=== PATIENT | female | born 1940 | race Two or more races ===

== ENCOUNTER 2022-02-27 10:27 | Inpatient (IN) | payer MEDICAID, MEDICARE, OTHER ==
[~2022-02-27] VITALS: Ht 154.9 cm; Wt 68.0 kg
[2022-02-27] MEDS ORDERED: ONDANSETRON HCL 4MG/2ML INJ IV ONE (11:45)
[2022-02-27 12:01] LABS: CHLORIDE 109 mEq/L (98-107)
[2022-02-27 12:08] LABS: BASOPHILS % 0.5 % (0.0-2.0); EOSINOPHILS % 0.4 % (0.0-5.0); HEMATOCRIT. 34.8 % (36.0-48.0); HEMOGLOBIN. 11.8 g/dL (12.0-16.0); LYMPHOCYTES % 50.3 % (20.0-50.0); MEAN CORPUSCULAR HEMOGLOBIN 31.8 pg (28.0-32.0); MEAN CORPUSCULAR VOLUME 93.7 fL (81.0-99.0); MEAN PLATELET VOLUME 9.9 fl (7.4-10.4); MONOCYTES % 8.1 % (2.0-8.0); NEUTROPHILS % 40.7 % (40.0-76.0); PLATELET 201 x1000/uL (130-400); RED BLOOD CELL COUNT 3.71 mill/uL (4.2-5.4); RED CELL DISTRIBUTION WIDTH 14.5 % (11.6-14.6)
[2022-02-27] MEDS ORDERED: CEFEPIME HCL 1000MG/VIAL INJ IM ONE (12:30)
[2022-02-27] MEDS ORDERED: VANCOMYCIN 1G PREMIX 200 ML IV SCH (12:30)
[2022-02-27] MEDS ORDERED: SODIUM CHLORIDE 0.9% 1000ML BAG (SEPSIS BOLUS) IV ONE (12:30)
[2022-02-27 14:20] LABS: CLARITY URINE CLEAR (CLEAR); COLOR URINE YELLOW (YELLOW); KETONES URINE 1+ (NEGATIVE); LEUKOCYTE ESTERASE URINE NEGATIVE (NEGATIVE); NITRITE URINE NEGATIVE (NEGATIVE); OCCULT BLOOD URINE NEGATIVE (NEGATIVE); PROTEIN URINE NEGATIVE (NEGATIVE); UROBILINOGEN URINE 0.2 E.U./dL (0.2-1.0)
[2022-02-27] MEDS ORDERED: CEFEPIME 1,000 MG in DEXTROSE 5% WATER 50 ML IV SCH (15:30)
[2022-02-27 17:15] VITALS: BP 123/51
[2022-02-27] MEDS ORDERED: METO25TA6 PO (18:06)
[2022-02-27] MEDS ORDERED: APIX5TAB4 PO (18:06)
[2022-02-27] MEDS ORDERED: GLIP5TAB12 PO (18:06)
[2022-02-27] MEDS ORDERED: METF-414 PO (18:06)
[2022-02-27] MEDS ORDERED: LEVO25TA2 PO (18:09)
[2022-02-27] MEDS ORDERED: DOCUSATE SODIUM 100MG CAPSULE PO PRN ×2 (19:00)
[2022-02-27] MEDS ORDERED: MAGNESIUM/ALUMINUM HYDROXIDE/SIMETHICONE 30ML UDC PO PRN (19:00)
[2022-02-27] MEDS ORDERED: PIPERACILLIN/TAZ 3.375G PREMIX 50 ML IV SCH ×2 (19:00)
[2022-02-27] MEDS ORDERED: APIXABAN 5 MG TABLET PO SCH (19:00)
[2022-02-27] MEDS ORDERED: ACETAMINOPHEN 325MG TABLET PO PRN ×2 (19:00)
[2022-02-27] MEDS ORDERED: ONDANSETRON HCL 4MG/2ML INJ IV PRN (19:00)
[2022-02-27] MEDS ORDERED: LEVO125T8 PO (19:14)
[2022-02-27] MEDS ORDERED: METO-396 PO (19:14)
[2022-02-27] MEDS ORDERED: ATOR20TA PO (19:15)
[2022-02-27] MEDS ORDERED: VALS1TAB72 PO (19:16)
[2022-02-27] MEDS ORDERED: SERT25TA74 PO (19:17)
[2022-02-27 20:00] VITALS: BP 128/59
[2022-02-27] MEDS ORDERED: DEXTROSE 50% WATER 50ML SYRINGE IV PRN (20:30)
[2022-02-27] MEDS ORDERED: MAGNESIUM CITRATE 300ML SOLUTION PO NR (21:00)
[2022-02-27] MEDS: BLOOD SUGAR DIAGNOSTIC STRIP TEST SCH (21:00)
[2022-02-27] MEDS: METOPROLOL TARTRATE 25MG TABLET PO SCH (22:54)
[2022-02-27] MEDS: PIPERACILLIN/TAZOBACTAM 3.375G in DEXT 5% WATER 50ML IV SCH (22:55)
[2022-02-27] MEDS: INSULIN LISPRO 100 UNITS/ML SUBCUT SCH (23:21)
[2022-02-28] VITALS: BP 122/54
[2022-02-28 04:00] VITALS: BP 124/60
[2022-02-28 05:59] LABS: BASOPHILS % 0.4 % (0.0-2.0); EOSINOPHILS % 0.5 % (0.0-5.0); HEMATOCRIT. 32.1 % (36.0-48.0); HEMOGLOBIN. 10.9 g/dL (12.0-16.0); LYMPHOCYTES % 30.9 % (20.0-50.0); MEAN CORPUSCULAR HEMOGLOBIN 31.6 pg (28.0-32.0); MEAN CORPUSCULAR VOLUME 93.1 fL (81.0-99.0); MEAN PLATELET VOLUME 9.3 fl (7.4-10.4); MONOCYTES % 7.9 % (2.0-8.0); NEUTROPHILS % 60.3 % (40.0-76.0); PLATELET 174 x1000/uL (130-400); RED BLOOD CELL COUNT 3.45 mill/uL (4.2-5.4); RED CELL DISTRIBUTION WIDTH 14.7 % (11.6-14.6)
[2022-02-28 06:02] LABS: CHLORIDE 112 mEq/L (98-107)
[2022-02-28] MEDS: BLOOD SUGAR DIAGNOSTIC STRIP TEST SCH ×3 (06:32→16:49)
[2022-02-28] MEDS: PIPERACILLIN/TAZOBACTAM 3.375G in DEXT 5% WATER 50ML IV SCH ×2 (06:32→11:52)
[2022-02-28] MEDS ORDERED: LEVOTHYROXINE SODIUM 125MCG TABLET PO SCH (07:20)
[2022-02-28] MEDS: INSULIN LISPRO 100 UNITS/ML SUBCUT SCH ×3 (07:50→16:52)
[2022-02-28] MEDS: APIXABAN 5 MG TABLET PO SCH ×2 (08:15→16:48)
[2022-02-28 08:16] VITALS: BP_SYST 108; BP_SYST 116; BP_SYST 130; BP_DIAS 40; BP_DIAS 44; BP_DIAS 74
[2022-02-28] MEDS: METOPROLOL TARTRATE 25MG TABLET PO SCH (08:16)
[2022-02-28] MEDS ORDERED: LEVOTHYROXINE SODIUM 25MCG TABLET PO SCH (09:00)
[2022-02-28 09:20] LABS: VITAMIN B12 SERUM 291 pg/mL (211-911)
[2022-02-28 12:30] VITALS: BP 120/46
[2022-02-28] MEDS ORDERED: SORBITOL 70% SOLN 30ML PO NR (14:15)
[2022-02-28] MEDS ORDERED: NA PHOS,M-B/NA PHOS,DI-BA ENEMA 118ML PR NR (14:15)
[2022-02-28 16:04] VITALS: BP 126/58
[2022-02-28 16:29] VITALS: BP 126/58
== END 2022-02-28 18:48 | disposition home health service (06) | DRG 389 ==
LOC: ER 10:55 → 6WST 14:39 → ENRESERV 16:35
PROVIDERS: ADMIT Internal Medicine Pulmonary Disease; ATTEND Internal Medicine Pulmonary Disease
DX: K56.41 Fecal impaction (principal); E44.1 Mild protein-calorie malnutrition; E11.9 Type 2 diabetes mellitus without complications; F41.9 Anxiety disorder, unspecified; K44.9 Diaphragmatic hernia without obstruction or gangrene; E87.8 Other disorders of electrolyte and fluid balance, not elsewhere classified; D64.9 Anemia, unspecified; Z68.28 Body mass index [BMI] 28.0-28.9, adult; Z90.49 Acquired absence of other specified parts of digestive tract; Z95.2 Presence of prosthetic heart valve
CPT/HCPCS: 36415; 71045; 74176; 76700; 80053; 81003; 82607; 82962; 83036; 83605; 83880; 84443; 84484; 85025; 93005; 99285; J0692; J1815; J2405; J2543; J3370; J7030; J7060

== ENCOUNTER 2025-02-04 21:15 | Emergency (ER) | payer MEDICARE, OTHER ==
[~2025-02-04] VITALS: Ht 152.4 cm; Wt 58.0 kg
[~2025-02-04 21:15] MED LIST: APIX5TAB4 PO; ATOR20TA PO; GLIP5TAB22 PO; LEVO125T8 PO; METF-414 PO; METO-396 PO; PROT40 MT; SERT25TA74 PO; VALS1TAB72 PO
[2025-02-04 21:18] VITALS: O2SAT 99
[2025-02-04 23:55] LABS: BASOPHILS % 0.2 % (0.0-2.0); EOSINOPHILS % 0.2 % (0.0-5.0); HEMATOCRIT. 38.6 % (36.0-48.0); HEMOGLOBIN. 12.7 g/dL (12.0-16.0); LYMPHOCYTES % 14.5 % (20.0-50.0); MEAN CORPUSCULAR HEMOGLOBIN 31.6 pg (28.0-32.0); MEAN CORPUSCULAR HGB CONC 32.8 g/dL (31.0-37.0); MEAN CORPUSCULAR VOLUME 96.1 fL (81.0-99.0); MEAN PLATELET VOLUME 9.5 fl (7.4-10.4); MONOCYTES % 6.2 % (2.0-8.0); NEUTROPHILS % 78.9 % (40.0-76.0); PLATELET 154 x1000/uL (130-400); RED BLOOD CELL COUNT 4.02 mill/uL (4.2-5.4); RED CELL DISTRIBUTION WIDTH 15.7 % (11.6-14.6); WHITE BLOOD COUNT 10.7 x1000/uL (4.5-11.0)
[2025-02-05 00:10] LABS: CHLORIDE 103 mEq/L (98-107); POTASSIUM 3.6 mEq/L (3.5-5.1); SODIUM 140 mEq/L (136-145)
[2025-02-05 00:11] LABS: CALCIUM 9.8 mg/dL (8.7-10.4); CARBON DIOXIDE 24 mEq/L (21-32)
[2025-02-05 00:12] LABS: INR 1.1; PROTHROMBIN TIME 11.3 sec (9.6-11.0)
[2025-02-05 00:16] LABS: CREATININE 0.7 mg/dL (0.6-1.0); GLUCOSE 162 mg/dL (70-105); UREA NITROGEN BLOOD 9 mg/dL (9-23)
[2025-02-05] MEDS: KETOROLAC 15MG/ML VIAL IV PRN (00:20)
[2025-02-05] MEDS: MORPHINE SULFATE 2 MG/ML INJ (NOT FOR IM USE) IV PRN (00:21)
[2025-02-05 01:06] VITALS: BP 157/72; PULSE 99; RESP 14; TEMP 36.7; O2SAT 98
[2025-02-05] MEDS ORDERED: HYDROMORPHONE HCL/PF 2MG/ML INJ IV PRN (06:15)
[2025-02-05] MEDS ORDERED: MAGNESIUM/ALUMINUM HYDROXIDE/SIMETHICONE 30ML UDC PO PRN (06:15)
[2025-02-05] MEDS ORDERED: ACETAMINOPHEN 325MG TABLET PO PRN (06:15)
[2025-02-05] MEDS ORDERED: NA PHOS,M-B/NA PHOS,DI-BA ENEMA 118ML PR PRN (06:15)
[2025-02-05] MEDS ORDERED: DOCUSATE SODIUM 100MG CAPSULE PO PRN (06:15)
[2025-02-05] MEDS ORDERED: HYDROCODONE/ACETAMINOPHEN 5/325MG TABLET PO PRN (06:15)
[2025-02-05] MEDS ORDERED: ZOLPIDEM TARTRATE 5MG TABLET PO PRN (06:15)
[2025-02-05] MEDS ORDERED: ONDANSETRON HCL 4MG/2ML INJ IV PRN (06:15)
[2025-02-05] MEDS ORDERED: NALOXONE HCL 0.4MG/ML VIAL IV PRN (06:30)
[2025-02-05] MEDS ORDERED: LEVOTHYROXINE SODIUM 125MCG TABLET PO SCH (07:50)
[2025-02-05] MEDS ORDERED: SERTRALINE HCL 25MG TABLET PO SCH (09:00)
[2025-02-05] MEDS ORDERED: METOPROLOL SUCCINATE 25MG ER TABLET PO SCH (09:00)
[2025-02-05] MEDS ORDERED: LOSARTAN 50 MG TABLET PO SCH (09:00)
[2025-02-05] MEDS ORDERED: PANTOPRAZOLE 40MG DR TABLET PO SCH (09:00)
[2025-02-05] MEDS ORDERED: ATORVASTATIN CALCIUM 20MG TABLET PO SCH (21:00)
[2025-02-06] MEDS ORDERED: ENOXAPARIN 30MG/0.3ML SYR SUBCUT SCH (09:00)
== END 2025-02-05 01:22 | disposition short-term general hospital (02) ==
LOC: ER 21:15
DX: S72.142A Displaced intertrochanteric fracture of left femur, initial encounter for closed fracture (principal); F41.9 Anxiety disorder, unspecified; E78.5 Hyperlipidemia, unspecified; E11.9 Type 2 diabetes mellitus without complications; E03.9 Hypothyroidism, unspecified; I48.91 Unspecified atrial fibrillation; I10 Essential (primary) hypertension; Z98.890 Other specified postprocedural states; Z79.84 Long term (current) use of oral hypoglycemic drugs; Z79.01 Long term (current) use of anticoagulants; Z79.899 Other long term (current) drug therapy; W19.XXXA Unspecified fall, initial encounter; Y93.89 Activity, other specified; Y92.89 Other specified places as the place of occurrence of the external cause; Y99.8 Other external cause status
CPT/HCPCS: 99291; 96374; 80048; 85025; 85610; 86850; 86900; 86901; 36415; 73552; 72170; 93005; J1885